=== PATIENT | female | born 1950 | race American Indian/Alaskan Native ===

== ENCOUNTER 2017-10-06 12:36 | Observation (INO) | payer BC ==
[2017-10-06] MEDS ORDERED: Albuterol-Ipratrop 3 mg / 0.5 (3 ml) UD IH STA (14:43)
--- NOTE | 2017-10-06 14:46 | C.PDOC ---
History Of Present Illness 67yo female with history of asthma and hypertension, presents with complaints of "chest congestion", which she described as chest tightness. Patient also states she has cough and shortness of breath for the past 2 weeks. Patient states she took Azithromycin, levaquin and doxycycline without relief. She uses pro-air though has not taken any nebulizer treatments at home. Patient also states she did not take her hypertension medication at home today. Of note, patient states she had chest pain within the last 2 weeks but currently does not have any chest pain. Time Seen by Provider: 10/06/17 14:22 Chief Complaint (Nursing): Shortness Of Breath History Per: Patient History/Exam Limitations: no limitations Onset/Duration Of Symptoms: Days Current Symptoms Are (Timing): Still Present Past Medical History Reviewed: Historical Data, Nursing Documentation, Vital Signs Vital Signs: Last Vital Signs Temp 98.4 F 10/06/17 12:41 Pulse 91 H 10/06/17 17:36 Resp 22 10/06/17 17:36 BP 168/71 H 10/06/17 17:36 Pulse Ox 95 10/06/17 18:12 - Medical History PMH: Asthma, HTN Surgical History: No Surg Hx Family History: States: No Known Family Hx - Social History Hx Alcohol Use: No Hx Substance Use: No - Immunization History Hx Tetanus Toxoid Vaccination: No Hx Influenza Vaccination: Yes Hx Pneumococcal Vaccination: Yes Review Of Systems Except As Marked, All Systems Reviewed And Found Negative. Respiratory: Positive for: Cough, Shortness of Breath, Other (chest congestion) Physical Exam - Physical Exam Appears: Non-toxic, No Acute Distress Skin: Normal Color, Warm Head: Atraumatic, Normacephalic Eye(s): bilateral: Normal Inspection, EOMI Nose: Normal Oral Mucosa: Moist Throat: Normal Neck: Normal ROM, Supple Chest: Symmetrical Cardiovascular: Rhythm Regular Respiratory: Decreased Breath Sounds, Wheezing Gastrointestinal/Abdominal: Normal Exam, Soft, No Tenderness Extremity: Normal ROM Neurological/Psych: Oriented x3, Normal Speech, Normal Cognition ED Course And Treatment - Laboratory Results Result Diagrams: 10/06/17 15:08 10/06/17 15:08 ECG: Interpreted By Me, Viewed By Me ECG Rhythm: Sinus Rhythm ECG Interpretation: No Acute Changes Rate From EC O2 Sat by Pulse Oximetry: 95 (RA) Pulse Ox Interpretation: Normal Progress Note: Albuterol, duoneb and solumedrol given. Upon re-eval, patient states symptoms have improved. [address] Cueva who agress on admission. Patient admitted under Dr. Cueva. Disposition - Disposition Disposition: HOSPITALIZED Disposition Time: 18:35 Condition: STABLE Forms: [facility] ([place]) - Clinical Impression Clinical Impression: Bronchitis, Asthma exacerbation, Failure of outpatient treatment - PA / NEUROPSYCHOLOGY DIVISION CHIEF / Resident Statement MD/DO has reviewed & agrees with the documentation as recorded. - Scribe Statement The provider has reviewed the documentation as recorded by the Rakesh Thomas Provider Attestation: All medical record entries made by the Rakesh were at my direction and personally dictated by me. I have reviewed the chart and agree that the record accurately reflects my personal performance of the history, physical exam, medical decision making, and the department course for this patient. I have also personally directed, reviewed, and agree with the discharge instructions and disposition.
[2017-10-06 15:15] LABS: BASO # 0.1 K/uL (0.0-0.2); BASO % 0.9 % (0.0-2.0); EOS # 0.1 K/uL (0.0-0.7); EOS % 1.9 % (0.0-4.0); HEMATOCRIT 40.8 % (34.0-47.0); LYMPH % 32.2 % (20.0-40.0); MEAN CORPUSCULAR HEMOGLOBIN 31.2 pg (27.0-31.0); MEAN CORPUSCULAR HGB CONC 33.9 g/dL (33.0-37.0); MEAN PLATELET VOLUME 8.5 fL (7.2-11.7); MONO # 0.5 K/uL (0.0-0.8); MONO % 8.1 % (0.0-10.0); RED CELL DISTRIBUTION WIDTH 12.9 % (11.5-14.5); WHITE BLOOD COUNT 6.4 K/uL (4.8-10.8)
[2017-10-06 15:23] LABS: ALKALINE PHOSPHATASE 136 U/L (38-126); ALT/SGPT 50 U/L (9-52); AST/SGOT 35 U/L (14-36); BILIRUBIN,TOTAL 0.5 mg/dL (0.2-1.3); BLOOD UREA NITROGEN 14 mg/dL (7-17); CALCIUM 8.6 mg/dl (8.6-10.4); CARBON DIOXIDE 31 mmol/L (22-30); CHLORIDE 105 mmol/L (98-107); GFR AFRICAN-AMERICAN > 60; GLUCOSE,RANDOM 103 mg/dL (65-105); POTASSIUM 3.6 mmol/L (3.6-5.2); SODIUM 141 mmol/L (132-148); TOTAL PROTEIN 8.8 g/dL (6.3-8.3)
[2017-10-06 15:25] LABS: ALB/GLOB RATIO 0.9 (1.0-2.1)
--- NOTE | 2017-10-06 15:45 | RAD ---
HISTORY: Shortness of breath. COMPARISON: No prior. TECHNIQUE: Chest PA and lateral FINDINGS: LUNGS: No active pulmonary disease. PLEURA: No significant pleural effusion identified. No pneumothorax apparent. CARDIOVASCULAR: Normal. OSSEOUS STRUCTURES: No significant abnormalities. VISUALIZED UPPER ABDOMEN: Normal. OTHER FINDINGS: None. IMPRESSION: No active disease.
[2017-10-06 15:48] LABS: RBC URINE 3 /hpf (0-3); URINE BILIRUBIN NEGATIVE (NEGATIVE); URINE BLOOD NEGATIVE (NEGATIVE); URINE COLOR Yellow (YELLOW); URINE GLUCOSE (UA) NORMAL (Normal); URINE KETONE NEGATIVE (NEGATIVE); URINE LEUKOCYTE ESTERASE 1+ Leu/uL (Negative); URINE PROTEIN NEGATIVE (NEGATIVE); URINE UROBILINOGEN NORMAL mg/dL (0.2-1.0); WBC URINE 9 /hpf (0-5)
[2017-10-06] MEDS ORDERED: Albuterol-Ipratrop 3 mg / 0.5 (3 ml) UD ONE (15:58)
[2017-10-06] MEDS ORDERED: Albuterol 0.083% Inhal Sol (2.5 mg/3 mL) UD IH STA (16:23)
[2017-10-06] MEDS ORDERED: Albuterol 0.083% Inhal Sol (2.5 mg/3 mL) UD ONE (16:39)
[2017-10-06] MEDS ORDERED: Iodixanol 320 MG/ML 100 ML BOTTLE IV ONE (17:08)
--- NOTE | 2017-10-06 17:20 | CT ---
PROCEDURE: CT Chest with contrast (Pulmonary Angiogram) HISTORY: chest pain COMPARISON: None available. TECHNIQUE: Axial computed tomography images were obtained of the chest in the pulmonary arterial phase of enhancement. Coronal and sagittal reformatted images were created and reviewed. Intravenous contrast dose: Visipaque 320, 100 Radiation dose: Total exam DLP = 485.70 mGy-cm. This CT exam was performed using one or more of the following dose reduction techniques: Automated exposure control, adjustment of the mA and/or kV according to patient size, and/or use of iterative reconstruction technique. FINDINGS: PULMONARY ARTERIES: Unremarkable. No pulmonary embolism. Pulmonary arterial contrast-enhancement is somewhat limited. AORTA: No acute findings. No thoracic aortic aneurysm. LUNGS: Unremarkable. No nodule, mass or pulmonary consolidation. PLEURAL SPACES: Unremarkable. No effusion or pneuomothorax. HEART: Unremarkable. No cardiomegaly. No significant pericardial effusion. LYMPH NODES: No lymphadenopathy. BONES, CHEST WALL: Unremarkable. No fracture or destructive lesion OTHER FINDINGS: A moderate hiatal hernia is appreciated. IMPRESSION: Unremarkable CT pulmonary angiogram. No pulmonary embolus. Somewhat limited opacification the central pulmonary arteries. No infiltrate, pleural or pericardial effusion or significant lymphadenopathy. Moderate size hiatal hernia.
[2017-10-06 19:48] VITALS: RESP 20
[2017-10-06] MEDS: Albuterol 0.083% Inhal Sol (2.5 mg/3 mL) UD IH SCH ×2 (20:14→23:48)
[2017-10-07] MEDS: Albuterol 0.083% Inhal Sol (2.5 mg/3 mL) UD IH SCH ×2 (03:16→07:21)
[2017-10-07] MEDS: Fluticasone-Salmeterol 250-50mcg Diskus INH SCH ×2 (07:30→22:11)
--- NOTE | 2017-10-07 08:44 | CP.PCM.HP ---
History of Present Illness - History of Present Illness History of Present Illness: CC: Coughing blood 67 y/o female with Asthma, Thyroid cyst & HTN. Pt w/ inc cough, chest congestion x 2 wks. She was seen 2 wks ago and was given Z-pack but she seems to worsen. Despite using Symbicort regularly. Mucus was persistently yellow but cough blood yesterday and chest is very tight. She was ask to go to ER. Present on Admission - Present on Admission Any Indicators Present on Admission: Yes History of DVT/PE: No History of Uncontrolled Diabetes: No Urinary Catheter: No Review of Systems - Review of Systems Systems not reviewed;Unavailable: Acuity of Condition - Constitutional Constitutional: Daytime Sleepiness, Sleep Apnea. absent: Frequent Falls, Night Sweats, Weakness - EENT Eyes: absent: Blurred Vision, Loss of Peripheral Vision, Pain, Requires Corrective Lenses, Sees Flashes Ears: absent: Ear Discharge, Dizziness Nose/Mouth/Throat: absent: Epistaxis, Bleeding Gums, Halitosis, Hoarsness, Odynophagia, Neck Pain - Cardiovascular Cardiovascular: Dyspnea, Dyspnea on Exertion. absent: Chest Pain with Activity , Diaphoresis, Edema, Irregular Heart Rhythm, Leg Edema, Leg Ulcers, Orthopnea, Palpitations - Respiratory Respiratory: Cough, Dyspnea on Exertion, Chest Congestion, Excessive Mucous Production, Change in Mucous Color, Pain with Coughing - Gastrointestinal Gastrointestinal: Abdominal Pain. absent: Diarrhea, Dyspepsia, Fecal Incontinence, Loose Stools - Genitourinary Genitourinary: absent: Difficulty Urinating, Dysuria, Hematuria, Urinary Hesitance, Urinary Urgency, Bladder Distension - Musculoskeletal Musculoskeletal: absent: Abnormal Gait, Atrophy, Back Pain, Joint Swelling, Myalgias, Neck Pain - Integumentary Integumentary: absent: Changing Lesions, Rash, Skin Pain, Swelling Past Patient History - Infectious Disease Hx of Infectious Diseases: None - Past Medical History & Family History Past Medical History?: Yes - Past Social History Smoking Status: Never Smoked - CARDIAC Hx Cardiac Disorders: Yes Hx Hypertension: Yes - PULMONARY Hx Respiratory Disorders: Yes Hx Asthma: Yes - NEUROLOGICAL Hx Neurological Disorder: No - HEENT Hx HEENT Problems: No - RENAL Hx Chronic Kidney Disease: No - ENDOCRINE/METABOLIC Hx Endocrine Disorders: No - HEMATOLOGICAL/ONCOLOGICAL Hx Blood Disorders: No - INTEGUMENTARY Hx Dermatological Problems: No - MUSCULOSKELETAL/RHEUMATOLOGICAL Hx Musculoskeletal Disorders: No Hx Falls: No - GASTROINTESTINAL Hx Gastrointestinal Disorders: No - GENITOURINARY/GYNECOLOGICAL Hx Genitourinary Disorders: No - PSYCHIATRIC Hx Psychophysiologic Disorder: No Hx Substance Use: No - SURGICAL HISTORY Hx Surgeries: Yes Other/Comment: HEMMROIDECTOMY - ANESTHESIA Hx Anesthesia: Yes Hx Anesthesia Reactions: No Hx Malignant Hyperthermia: No Has any member of the family had a problem w/ anesthesia?: No Meds Allergies/Adverse Reactions: Allergies Allergy/AdvReac Type Severity Reaction Status Date / Time No Known Allergies Allergy Verified 10/06/17 12:53 Physical Exam - Constitutional Appears: No Acute Distress - Eye Exam Eye Exam: Normal appearance - ENT Exam ENT Exam: absent: Mucous Membranes Moist - Neck Exam Neck exam: Positive for: Full Rom, Thyromegaly. Negative for: Lymphadenopathy - Respiratory Exam Respiratory Exam: Decreased Breath Sounds, Wheezes. absent: Rales, Rhonchi - Cardiovascular Exam Cardiovascular Exam: REGULAR RHYTHM, +S1, +S2, Systolic Murmur. absent: Gallop , JVD - Extremities Exam Extremities exam: Positive for: full ROM, normal capillary refill. Negative for : calf tenderness, joint swelling, pedal edema, pedal pulses present Results - Vital Signs Recent Vital Signs: Last Vital Signs Temp 99.2 F 10/07/17 07:50 Pulse 92 H 10/07/17 07:50 Resp 20 10/07/17 07:50 BP 187/93 H 10/07/17 07:50 Pulse Ox 96 10/07/17 07:50 - Labs Result Diagrams: 10/06/17 15:08 10/06/17 15:08 Labs: Laboratory Results - last 24 hr 10/06/17 10/06/17 10/06/17 15:08 15:08 15:08 WBC 6.4 RBC 4.43 Hgb 13.8 Hct 40.8 MCV 92.0 MCH 31.2 H MCHC 33.9 RDW 12.9 Plt Count 252 MPV 8.5 Neut % (Auto) 56.9 Lymph % (Auto) 32.2 [place] % (Auto) 8.1 Eos % (Auto) 1.9 Baso % (Auto) 0.9 Neut # 3.6 Lymph # 2.0 [place] # 0.5 Eos # 0.1 Baso # 0.1 D-Dimer, Quantitative 794 H Sodium 141 Potassium 3.6 Chloride 105 Carbon Dioxide 31 H Anion Gap 8 L BUN 14 Creatinine 0.9 Est GFR ( Amer) > 60 Est GFR (Non-Af Amer) > 60 Random Glucose 103 Calcium 8.6 Total Bilirubin 0.5 AST 35 ALT 50 Alkaline Phosphatase 136 H Total Creatine Kinase 231 H CK-MB (Mass) 2.59 Troponin I < 0.0120 NT-Pro-B Natriuret Pep 144 Total Protein 8.8 H Albumin 4.3 Globulin 4.5 H Albumin/Globulin Ratio 0.9 L Urine Color Urine Clarity Urine pH Ur Specific [place] Urine Protein Urine Glucose (UA) Urine Ketones Urine Blood Urine Nitrate Urine Bilirubin Urine Urobilinogen Ur Leukocyte Esterase Urine WBC (Auto) Urine RBC (Auto) Ur Squamous Epith Cells 10/06/17 15:26 WBC RBC Hgb Hct MCV MCH MCHC RDW Plt Count MPV Neut % (Auto) Lymph % (Auto) [place] % (Auto) Eos % (Auto) Baso % (Auto) Neut # Lymph # [place] # Eos # Baso # D-Dimer, Quantitative Sodium Potassium Chloride Carbon Dioxide Anion Gap BUN Creatinine Est GFR ( Amer) Est GFR (Non-Af Amer) Random Glucose Calcium Total Bilirubin AST ALT Alkaline Phosphatase Total Creatine Kinase CK-MB (Mass) Troponin I NT-Pro-B Natriuret Pep Total Protein Albumin Globulin Albumin/Globulin Ratio Urine Color Yellow Urine Clarity Clear Urine pH 6.0 Ur Specific [place] 1.019 Urine Protein Negative Urine Glucose (UA) Normal Urine Ketones Negative Urine Blood Negative Urine Nitrate Negative Urine Bilirubin Negative Urine Urobilinogen Normal Ur Leukocyte Esterase 1+ H Urine WBC (Auto) 9 H Urine RBC (Auto) 3 Ur Squamous Epith Cells 2 - EKG Data EKG Interpreted by: Myself Rate: Normal Assessment & Plan - Assessment and Plan (Free Text) Assessment: Asthma, Exac; necl/ muscle pain HTN On Steroid/ add duaNeb Unable to tolerate singulair - palpitation On HCTZ, Losartan and add Norvasc Flexeril BID
[2017-10-07] MEDS: Albuterol-Ipratrop 3 mg / 0.5 (3 ml) UD INH SCH (13:18)
--- NOTE | 2017-10-07 15:40 | CP.PCM.CON ---
History of Present Illness - History of Present Illness History of Present Illness: reason for consultation: shortness of breath 67-year-old female with history of asthma, hypertension presented to emergency room complaining of cough, shortness of breath and chest congestion for the past 2 weeks. Patient was treated with Z-Long without any improvement. Denies fever chills, denies chest pain. Patient states that the breathing is much better now. Review of Systems - Review of Systems All systems: reviewed and no additional remarkable complaints except (shortness of breath, cough and chest congestion) Past Patient History - Infectious Disease Hx of Infectious Diseases: None - Past Medical History & Family History Past Medical History?: Yes - Past Social History Smoking Status: Never Smoked - CARDIAC Hx Cardiac Disorders: Yes Hx Hypertension: Yes - PULMONARY Hx Respiratory Disorders: Yes Hx Asthma: Yes - NEUROLOGICAL Hx Neurological Disorder: No - HEENT Hx HEENT Problems: No - RENAL Hx Chronic Kidney Disease: No - ENDOCRINE/METABOLIC Hx Endocrine Disorders: No - HEMATOLOGICAL/ONCOLOGICAL Hx Blood Disorders: No - INTEGUMENTARY Hx Dermatological Problems: No - MUSCULOSKELETAL/RHEUMATOLOGICAL Hx Musculoskeletal Disorders: No Hx Falls: No - GASTROINTESTINAL Hx Gastrointestinal Disorders: No - GENITOURINARY/GYNECOLOGICAL Hx Genitourinary Disorders: No - PSYCHIATRIC Hx Psychophysiologic Disorder: No Hx Substance Use: No - SURGICAL HISTORY Hx Surgeries: Yes Other/Comment: HEMMROIDECTOMY - ANESTHESIA Hx Anesthesia: Yes Hx Anesthesia Reactions: No Hx Malignant Hyperthermia: No Has any member of the family had a problem w/ anesthesia?: No Meds Allergies/Adverse Reactions: Allergies Allergy/AdvReac Type Severity Reaction Status Date / Time No Known Allergies Allergy Verified 10/06/17 12:53 - Medications Medications: Current Medications Acetaminophen (Tylenol 325mg Tab) 650 mg PO Q6 PRN PRN Reason: Pain, moderate (4-7) Last Admin: 10/06/17 22:54 Dose: 650 mg Albuterol/Ipratropium (Duoneb 3 Mg/0.5 Mg (3 Ml) Ud) 3 ml INH RQ6 [facility] Last Admin: 10/07/17 13:18 Dose: Not Given Amlodipine Besylate (Norvasc) 10 mg PO DAILY [facility] Last Admin: 10/07/17 09:51 Dose: 10 mg Cyclobenzaprine HCl (Flexeril) 10 mg PO BID [facility] Last Admin: 10/07/17 09:46 Dose: 10 mg Heparin Sodium (Porcine) (Heparin) 5,000 units SC Q12 [facility] Last Admin: 10/07/17 09:49 Dose: 5,000 units Hydrochlorothiazide (Microzide) 12.5 mg PO DAILY [facility] Last Admin: 10/07/17 09:46 Dose: 12.5 mg Ceftriaxone Sodium 1 gm/ (Dextrose) 100 mls @ 100 mls/hr IVPB DAILY [facility] Last Admin: 10/07/17 09:53 Dose: 100 mls/hr Losartan Potassium (Cozaar) 100 mg PO DAILY [facility] Last Admin: 10/07/17 09:46 Dose: 100 mg Methylprednisolone (Solu-Medrol) 60 mg IV Q8H [facility] Last Admin: 10/07/17 09:49 Dose: 60 mg Fluticasone/Salmeterol (Advair Diskus 250/50) 1 puff INH RQ12 [facility] Last Admin: 10/07/17 07:30 Dose: Not Given Physical Exam - Head Exam Head Exam: ATRAUMATIC, NORMOCEPHALIC - Eye Exam Eye Exam: Normal appearance - ENT Exam ENT Exam: Mucous Membranes Moist - Neck Exam Neck exam: Positive for: Normal Inspection - Respiratory Exam Respiratory Exam: Rhonchi, Wheezes - Cardiovascular Exam Cardiovascular Exam: REGULAR RHYTHM - GI/Abdominal Exam GI & Abdominal Exam: Normal Bowel Sounds, Soft - Extremities Exam Extremities exam: Positive for: normal inspection - Neurological Exam Neurological exam: Alert, Oriented x3 Results - Vital Signs Recent Vital Signs: Last Vital Signs Temp 99.2 F 10/07/17 07:50 Pulse 92 H 10/07/17 07:50 Resp 20 10/07/17 07:50 BP 149/80 10/07/17 10:00 Pulse Ox 96 10/07/17 07:50 - Labs Result Diagrams: 10/06/17 15:08 10/06/17 15:08 Labs: Laboratory Results - last 24 hr 10/06/17 10/06/17 15:08 15:26 CK-MB (Mass) 2.59 Troponin I < 0.0120 NT-Pro-B Natriuret Pep 144 Urine Color Yellow Urine Clarity Clear Urine pH 6.0 Ur Specific [place] 1.019 Urine Protein Negative Urine Glucose (UA) Normal Urine Ketones Negative Urine Blood Negative Urine Nitrate Negative Urine Bilirubin Negative Urine Urobilinogen Normal Ur Leukocyte Esterase 1+ H Urine WBC (Auto) 9 H Urine RBC (Auto) 3 Ur Squamous Epith Cells 2 Assessment & Plan (1) Asthma exacerbation Assessment and Plan: presentation consistent with acute bronchitis Continue antibiotics, IV steroids, nebulizer treatment Status: Acute (2) Bronchitis Status: Acute
--- NOTE | 2017-10-07 18:25 | CARD ---
APPROVED REPORT EKG Measurement Heart [id number] <Conclusion> Normal sinus rhythm Normal ECG
[2017-10-08] MEDS: Albuterol-Ipratrop 3 mg / 0.5 (3 ml) UD INH SCH ×2 (02:00→07:17)
[2017-10-08] MEDS: Fluticasone-Salmeterol 250-50mcg Diskus INH SCH (07:17)
[2017-10-08 07:34] VITALS: BP 155/86; PULSE 73; TEMP 98; O2SAT 97
[2017-10-08 08:29] LABS: BLOOD UREA NITROGEN 18 mg/dL (7-17); CALCIUM 8.6 mg/dl (8.6-10.4); CARBON DIOXIDE 28 mmol/L (22-30); CHLORIDE 100 mmol/L (98-107); GFR AFRICAN-AMERICAN > 60; GLUCOSE,RANDOM 134 mg/dL (65-105); POTASSIUM 3.8 mmol/L (3.6-5.2); SODIUM 136 mmol/L (132-148)
--- NOTE | 2017-10-08 08:31 | CP.PCM.PN ---
Subjective - Date & Time of Evaluation Date of Evaluation: 10/08/17 Time of Evaluation: 08:15 - Subjective Subjective: Pt breathing "much better". No more SOB when talking. (+) minimal white mucus. No CP, no palpitation and sleep well. Objective - Vital Signs/Intake and Output Vital Signs (last 24 hours): Temp Pulse Resp BP Pulse Ox 98 F 73 20 155/86 H 97 10/08/17 07:31 10/08/17 07:31 10/08/17 07:31 10/08/17 07:31 10/08/17 07:31 Intake and Output: 10/08/17 10/08/17 06:59 18:59 Intake Total 400 240 Balance 400 240 - Medications Medications: Current Medications Acetaminophen (Tylenol 325mg Tab) 650 mg PO Q6 PRN PRN Reason: Pain, moderate (4-7) Last Admin: 10/06/17 22:54 Dose: 650 mg Albuterol/Ipratropium (Duoneb 3 Mg/0.5 Mg (3 Ml) Ud) 3 ml INH RQ6 [facility] Last Admin: 10/08/17 07:17 Dose: Not Given Amlodipine Besylate (Norvasc) 10 mg PO DAILY [facility] Last Admin: 10/07/17 09:51 Dose: 10 mg Cyclobenzaprine HCl (Flexeril) 10 mg PO BID [facility] Last Admin: 10/07/17 19:18 Dose: 10 mg Heparin Sodium (Porcine) (Heparin) 5,000 units SC Q12 [facility] Last Admin: 10/07/17 21:45 Dose: 5,000 units Hydrochlorothiazide (Microzide) 12.5 mg PO DAILY [facility] Last Admin: 10/07/17 09:46 Dose: 12.5 mg Ceftriaxone Sodium 1 gm/ (Dextrose) 100 mls @ 100 mls/hr IVPB DAILY [facility] Last Admin: 10/07/17 09:53 Dose: 100 mls/hr Losartan Potassium (Cozaar) 100 mg PO DAILY [facility] Last Admin: 10/07/17 09:46 Dose: 100 mg Methylprednisolone (Solu-Medrol) 60 mg IV Q8H [facility] Last Admin: 10/08/17 02:19 Dose: 60 mg Fluticasone/Salmeterol (Advair Diskus 250/50) 1 puff INH RQ12 [facility] Last Admin: 10/08/17 07:17 Dose: Not Given - Labs Labs: 10/06/17 15:08 10/06/17 15:08 - Constitutional Appears: No Acute Distress - Eye Exam Eye Exam: Normal appearance - ENT Exam ENT Exam: Mucous Membranes Moist - Neck Exam Neck Exam: Full ROM, Normal Inspection, Thyromegaly - Respiratory Exam Respiratory Exam: Decreased Breath Sounds, Wheezes. absent: Rhonchi ((+) Good air entry, (+) low grade expiratory wheeze) - Cardiovascular Exam Cardiovascular Exam: REGULAR RHYTHM, +S1. absent: JVD, Murmur - GI/Abdominal Exam GI & Abdominal Exam: Soft. absent: Tenderness, Mass - Extremities Exam Extremities Exam: Normal Capillary Refill. absent: Calf Tenderness, Joint Swelling, Pedal Edema Assessment and Plan - Assessment and Plan (Free Text) Assessment: Asthma, Exac - markedly improve HTN Will discharge on Medrol dose pack (do not want 2 wks course of steroid. Stress to use Symbicort BID, not prn cont all other OPD meds)
[2017-10-08 09:26] LABS: THYROID STIMULATING HORMONE 0.05 mIU/L (0.46-4.68)
== END 2017-10-08 12:16 | disposition home or self-care (01) ==
LOC: C.ER 12:36 → C.9E 18:09 → C.3T 19:02
PROVIDERS: ADMIT Internal Medicine; ATTEND Internal Medicine
DX: J45.901 Unspecified asthma with (acute) exacerbation (principal); J20.9 Acute bronchitis, unspecified; I10 Essential (primary) hypertension; E04.1 Nontoxic single thyroid nodule
CPT/HCPCS: 36415; 71020; 71275; 80048; 80053; 81001; 82550; 82553; 83880; 84443; 84484; 85025; 85378; 93005; 94640; 96374; 99285; G0378; J0696; J1644; J2930; Q9967